=== PATIENT | male | born 2000 | race Hispanic/Latino ===

== ENCOUNTER 2023-07-07 10:15 | Emergency (ER) | payer OTHER ==
[~2023-07-07] VITALS: Ht 170.2 cm; Wt 77.6 kg
[2023-07-07 10:51] VITALS: BP 125/65; PULSE 95; RESP 16; O2SAT 99
[2023-07-07 11:38] LABS: RAPID GROUP A STREP negative (NEGATIVE)
[2023-07-07 11:46] LABS: SARS-CoV-2, RNA, NAAT NEGATIVE SARS CoV-2 (NEGATIVE)
[2023-07-07 11:48] LABS: INFLUENZA TYPE A Negative For Type A (NEGATIVE); INFLUENZA TYPE B Negative For Type B (NEGATIVE)
== END 2023-07-07 12:37 | disposition home or self-care (01) ==
LOC: EDH 10:15
DX: B34.9 Viral infection, unspecified (principal); Z20.822 Contact with and (suspected) exposure to COVID-19
CPT/HCPCS: 99283; 87635; 87880; 87804 ×2; C9803